=== PATIENT | male | born 2000 | race Hispanic/Latino ===

== ENCOUNTER 2022-01-08 20:54 | Emergency (ER) | payer OTHER ==
--- OUTSIDE RECORDS SUMMARY | 2022-01-08 20:57 | XMS REPORT | Continuity of Care Document ---
:2000 Author Organization [facility] t Address [address] [place] [address] Care Team Providers Name Role Phone TAYLOR KHAN Primary Care Physician Unavailable TAYLOR KHAN Attending Clinician Unavailable Sy Long MD Attending Clinician SY LONG Attending Clinician Unavailable Payers Payer Name Policy Type Policy Number Effective Date Expiration Date [facility] [id number] 2013 00:00:00 Problems Condition Condition Condition Status Onset Resolution Last Treating Co mments Source Name Details Category Date Date Treatment Clinician Date No known No known Disease Unive rs active active ity of problems problems [facility] Allergies, Adverse Reactions, Alerts Allergy Allergy Status Severity Reaction(s) Onset Inactive Treating Comm ents Source Name Type Date Date Clinician NO KNOWN Drug Active Univers ALLERGIE Class ity of S [facility] Social History Social Habit Start Date Stop Date Quantity Comments Source Exposure to Not sure [facility] SARS-CoV-2 (event) Medica l Branch Tobacco use and 2017-07-09 2017-07-09 Never used [facility] exposure 00:00:00 00:00:00 [facility] Sex Assigned At [birth year] [facility] 00:00:00 00:00:00 [facility] Branch Smoking Status Start Date Stop Date Source Never smoker [facility] Medications Ordered Filled Start Stop Current Ordering Indication Dosage Frequency Signature Comments Components Source Medication Medication Date Date Medication? Clinician (SIG) Name Name ibuprofen 2020-05 Yes [id number] 600mg Take 1 Univers 600 mg 2-22 tablet by ity of tablet 00:00: mouth [place] [id number] every 8 Medical (eight) Branch hours as needed for Pain (scale 4-6). montelukast 2020-05 Yes [id number] 10mg Take 1 Univers 10 mg 2-22 tablet by ity of tablet 00:00: mouth [place] 00 every 24 Medical (twenty-fo Branch ur) hours as needed (symptoms) . loratadine 2020-05 Yes [id number] 10mg Take 1 Univers 10 mg 2-22 tablet by ity of tablet 00:00: mouth [place] 00 daily. Medical Branch methylpheni 2020- No 1{capsu Take 1 Univers date HCl 604-27 le} capsule by ity of (QUILLICHE[place] 00:00[place] 40 mg 00 :00 daily. Medical cb24 Take 1 Branch chew po Q am albuterol 2020- No 2{puff} Inhale 2 Univers 90 3 12- Puffs ity of mcg/actuati 00:00[place]00 [place] 4 [place] :00 (four) Medical hours as Branch needed for Wheezing, Shortness of Breath or Chest tightness. azithromyci No 250mg Take 1 Un emily n 250 mg 08-02 tablet by ity o f tablet 00:00: 00:00 mouth [place] 00 :00 SEE-INSTRU Medical CTIONS. Branch Take 500 mg day 1, then 250 mg days 2 to 5. predniSONE 2020- No Take 2 Univ ers 20 mg 07-09-22 tablets po ity of tablet 00:00: 00:00 bid x 3 [place] 00 :00 days, then Medical 1 tablet Branch po bid x 3 days, then 1 tablet po qd x 3 days, 1/2 tablet po qd x 3 days Immunizations Ordered Immunization Filled Immunization Date Status Commen ts Source Name Name Influenza Virus 2014-01-20 Completed Universit y of Vaccine 00:00:00 [facility] Meningococcal 2014-01-20 Completed University Polysaccharide 00:00:00 [facility] citlaly (groups A, C, Y and Branc h W-135) conjugate vaccine (MCV4P) TDAP 2014-01-20 Completed [facility] 00:00:00 [facility] DTAP 2007-02-28 Completed [facility] 00:00:00 [facility] HEPATITIS A 2007-02-28 Completed University of 00:00:00 [facility] MMR 2007-02-28 Completed University of 00:00:00 [facility] Polio (IPV/OPV) 2007-02-28 Completed Universit y of 00:00:00 [facility] Varicella 2007-02-28 Completed University of (varivax)(chicken 00:00:00 [place] M edical pox) Branch HEPATITIS A 2005-09-06 Completed University of 00:00:00 [facility] Pneumococcal 13 2005-09-06 Completed Universit y of Conjugate, PCV13 00:00:00 [place] Me dical (Prevnar 13) Branch DTAP 2004-07-04 Completed University of 00:00:00 [facility] HIB 4 Dose Schedule 2004-07-04 Completed Unive rsity of 00:00:00 [facility] MMR 2004-07-04 Completed University of 00:00:00 [facility] Polio (IPV/OPV) 2003-11-26 Completed Universit y of 00:00:00 [facility] Varicella 2003-11-26 Completed University of (varivax)(chicken 00:00:00 [place] M edical pox) Branch Pneumococcal 13 2003-10-19 Completed Universit y of Conjugate, PCV13 00:00:00 [facility] dical (Prevnar 13) Branch Hep B, Adol or Pedi 2003-09-09 Completed Unive rsity of Dosage 00:00:00 [facility] DTAP 2003-06-10 Completed University of 00:00:00 [facility] HIB 4 Dose Schedule 2003-06-10 Completed Unive rsity of 00:00:00 [facility] Pneumococcal 13 2003-06-10 Completed Universit y of Conjugate, PCV13 00:00:00 [place] Me dical (Prevnar 13) Branch DTAP 2003-02-27 Completed University of 00:00:00 [facility] HIB 4 Dose Schedule 2003-02-27 Completed Unive rsity of 00:00:00 [facility] Pneumococcal 13 2003-02-27 Completed Universit y of Conjugate, PCV13 00:00:00 [place] Me dical (Prevnar 13) Branch Polio (IPV/OPV) 2003-02-27 Completed Universit y of 00:00:00 [facility] DTAP 2002 Completed University of 00:00:00 [facility] HIB 4 Dose Schedule 2002 Completed Unive rsity of 00:00:00 [facility] Hep B, Adol or Pedi 2002 Completed Unive rsity of Dosage 00:00:00 [facility] Pneumococcal 13 2002 Completed Universit y of Conjugate, PCV13 00:00:00 [facility] dical (Prevnar 13) Branch Polio (IPV/OPV) 2002 Completed Universit y of 00:00:00 [facility] Hep B, Adol or Pedi 2002 Completed Unive rsity of Dosage 00:00:00 [facility] Vital Signs Vital Name Observation Time Observation Value Comments Source Systolic blood 2021-04-27 07:35:00 101 mm[Hg] Univer sity of pressure [facility] Diastolic blood 2021-04-27 07:35:00 86 mm[Hg] Unive rsity of pressure [facility] Heart rate 2021-04-27 07:35:00 102 /min [facility] Body temperature 2021-04-27 07:35:00 37.61 [facility] Respiratory rate 2021-04-27 07:35:00 14 /min [facility] Body height 2021-04-27 07:35:00 185.4 cm [facility] Body weight 2021-04-27 07:35:00 81.647 kg [facility] BMI 2021-04-27 07:35:00 23.75 kg/m2 [facility] Body mass index 2021-04-27 07:35:00 68.48 % Unive rsity of (BMI) [Percentile] [facility] ical Per age and sex Branch Oxygen saturation in 2021-04-27 07:35:00 97 /min [facility] Arterial blood by [facility] Pulse oximetry Branch Procedures Procedure Date / Time Performed Performing Clinician Sourc e RAPID INFLUENZA A/B 2021-04-27 08:01:00 Sy Long [facility] COVID-19 (ID NOW 2021-04-27 08:01:00 Sy Long [facility] RAPID TESTING) Medical [place] NOTICE OF PRIVACY 2021-04-27 07:25:59 Doctor Unassigned, No Univ [facility] PRACTICES Name Medical Branch CONSENT/REFUSAL FOR 2021-04-27 07:24:45 Doctor Unassigned, No Un [facility] DIAGNOSIS AND Name [facility] TREATMENT Encounters Start End Encounter Admission Attending Care Care Encounter Source Date/Time Date/Time Type Type Clinicians Facility Department ID 2021-10-21 2021-10-21 Outpatient R [facility] [id number] Univers 07:50:00 07:50:00 , TAYLOR [id number] mali [facility] 2021-10-21 2021-10-21 Outpatient R [facility] [id number] Univers 07:50:00 07:50:00 , TAYLOR samson [facility] 2021-04-27 2021-04-27 [facility] [id number] Univers 01:39:00 02:58:00 Sy ARNETT [id number] i ty [facility] [id number] [facility] [id number] [facility] 084 Branch 2021-04-27 2021-04-27 Emergency X [facility] ERT [id number] Univers 01:39:00 02:58:[address] [facility] Results This patient has no known results.
[2022-01-08] MEDS ORDERED: LIDOCAINE 1% W/EPI 1:100,000 MDV 50 ML VIAL ONE (21:24)
--- NOTE | 2022-01-08 22:08 | RAD REPORT ---
EXAM DESCRIPTION: CT - Head C Spine Mpr Wo Con - 01/08/2022 9:24 pm CLINICAL HISTORY: Head and neck injury status post fall. Head and neck pain COMPARISON: None. TECHNIQUE: Computed axial tomography of the head and cervical spine was obtained. Sagittal and coronal reconstruction was performed. All CT scans are performed using dose optimization technique as appropriate and may include automated exposure control or mA/KV adjustment according to patient size. FINDINGS: An intracranial bleed is not seen. The ventricles are normal in caliber. An extra-axial fl uid collection is not noted.Fluid within the visualized sinuses and mastoids is not seen Many of the images of the cervical spine are degraded by motion artifact. No gross fracture or dislocation seen IMPRESSION: No acute intracranial abnormality is seen. Grossly normal cervical spine. Evaluation is limited secondary to motion artifact If the patient continues to have symptoms to suggest intracranial /spinal cord pathology then MRI wou ld be recommended
--- NOTE | 2022-01-08 22:56 | EDPHYS ---
Physician Documentation [facility] Name: Gurdeep Veliz Age: 21 yrs Sex: Male : 2000 Arrival Date: 01/08/2022 Time: 20:57 Bed 5 Private MD: ED Physician Tony Patel HPI: 01/08 21:10 This 21 yrs old Male presents to ER via Ambulatory with complaints of Head cp Injury Without LOC-Adult. 21:10 The patient or guardian reports injury. The complaints affect the above left eye. cp 21:10 Context of injury: resulted from a fall, while riding skateboard. Onset: The cp symptoms/episode began/occurred just prior to arrival. Associated signs and symptoms: Loss of consciousness: This patient did not experience any loss of consciousness. Pertinent positives: headache, Pertinent negatives: incontinence, neck pain, seizure, vomiting. Severity of symptoms: in the emergency department the symptoms are unchanged. Historical: - Allergies: 20:59 No Known Allergies; hb - Home Meds: 20:59 None [Active]; hb - PMHx: 20:59 Asthma; hb - PSHx: 20:59 None; hb - Immunization history:: Adult Immunizations up to date, Last tetanus immunization: unknown. - Social history:: Smoking status: Patient denies any tobacco usage or history of. ROS: 21:15 Constitutional: Negative for body aches, chills, fever, poor PO intake. cp 21:15 Eyes: Negative for injury, pain, redness, and discharge. cp 21:15 Neck: Negative for pain with movement, pain at rest, stiffness. 21:15 Cardiovascular: Negative for chest pain. 21:15 Abdomen/GI: Negative for abdominal pain, vomiting, diarrhea, constipation. 21:15 Skin: Positive for laceration(s), of the above left eye. 21:15 Neuro: Positive for headache, Negative for altered mental status, loss of consciousness. 21:15 All other systems are negative. Exam: 21:20 Constitutional: The patient appears in no acute distress, alert, awake, cp non-diaphoretic, non-toxic, well developed, well nourished. 21:20 Head/face: Noted is ecchymosis, that is mild, a laceration(s), that is deep, that is cp linear, of the above left eye, swelling, that is mild. 21:20 Eyes: Pupils: equal, round, and reactive to light and accomodation, Extraocular movements: intact throughout, Conjunctiva: normal, no exudate, no injection, Lids and lashes: appear normal, bilaterally. 21:20 ENT: External ear(s): are unremarkable, Nose: is normal, Mouth: Lips: moist, Oral mucosa: pink and intact, moist, Posterior pharynx: Airway: no evidence of obstruction, patent. 21:20 Neck: C-spine: vertebral tenderness, is not appreciated, crepitus, is not appreciated, ROM/movement: pain, is not appreciated, limited range of motion, is not appreciated, nuchal rigidity, is not appreciated. 21:20 Chest/axilla: Inspection: normal, Palpation: is normal, no crepitus, no tenderness. 21:20 Cardiovascular: Rate: normal, Rhythm: regular. 21:20 Respiratory: the patient does not display signs of respiratory distress, Respirations: normal, no use of accessory muscles, no retractions, labored breathing, is not present, Breath sounds: are clear throughout, no decreased breath sounds, no stridor, no wheezing. 21:20 Abdomen/GI: Inspection: abdomen appears normal, Palpation: abdomen is soft and non-tender, in all quadrants. 21:20 Back: pain, is absent, ROM is normal. 21:20 Neuro: Orientation: to person, place \T\ time. Mentation: is normal, Cerebellar function: is grossly normal, Motor: moves all fours, strength is normal, Sensation: is normal, Gait: is steady. Vital Signs: 20:58 BP 127 / 77; Pulse 68; Resp 16; Temp 99.2(TE); Pulse Ox 100% on R/A; Weight 74.84 kg; hb Height 6 ft. (182.88 cm); Pain 8/10; 20:58 Body Mass Index 22.38 (74.84 kg, 182.88 cm) hb Bjorn Coma Score: 21:00 Eye Response: spontaneous(4). Verbal Response: oriented(5). Motor Response: obeys tw5 commands(6). Total: 15. 21:10 Eye Response: spontaneous(4). Verbal Response: oriented(5). Motor Response: obeys cp commands(6). Total: 15. Trauma Score (Adult): 21:00 Eye Response: spontaneous(1); Verbal Response: oriented(1); Motor Response: obeys tw5 commands(2); Systolic BP: > 89 mm Hg(4); Respiratory Rate: 10 to 29 per min(4); Bjorn Score: 15; Trauma Score: 12 21:00 Eye Response: spontaneous(1); Verbal Response: oriented(1); Motor Response: obeys tw5 commands(2); Systolic BP: > 89 mm Hg(4); Respiratory Rate: 10 to 29 per min(4); Kellogg Score: 15; Trauma Score: 12 Laceration: 22:51 Wound Repair of 3cm ( 1.2in ) subcutaneous laceration to above left eye. Linear cp shaped.. Distal neuro/vascular/tendon intact. Anesthesia: Wound infiltrated with 4 mls of 1% lidocaine w/ Epi. Wound prep: Simple cleansing by me. Skin closed with 5 6-0 Prolene using interrupted sutures and sterile technique. Subcutaneous tissue closed with 3 5-0 Vicryl using interrupted sutures and sterile technique. Dressed with Bacitracin. Patient tolerated well. MDM: 21:13 Patient medically screened. [facility] 22:55 Data reviewed: vital signs, nurses notes, radiologic studies, CT scan. 22:55 Differential diagnosis: Contusion of head, Laceration of face, Intracranial bleed- cp Concussion cerebral contusion. Counseling: I had a detailed discussion with the patient and/or guardian regarding: the historical points, exam findings, and any diagnostic results supporting the discharge/admit diagnosis, radiology results, the need for outpatient follow up, a family practitioner, to return to the emergency department if symptoms worsen or persist or if there are any questions or concerns that arise at home. Response to treatment: the patient's symptoms have markedly improved after treatment, and as a result, I will discharge patient. Special discussion: Based on the patient's history, exam and DX evaluation, there is no indication for emergent intervention or inpatient [place]. It is understood by the patient/guardian that if the SXs persist or worsen they need to return immediately for re-evaluation. 01/08 21:03 Order name: CT Head C Spine; Complete Time: 22:10 01/08 22:11 Interpretation: Reviewed report. 01/08 21:03 Order name: Dressing - Wound; Complete Time: 22:57 cp 01/08 21:03 Order name: Gloves, Sterile; Complete Time: 21:42 cp 01/08 21:03 Order name: Setup Suture Tray; Complete Time: 21:42 cp Administered Medications: 22:57 Drug: Lidocaine-Epinephrine -1%: (1:100,000) 10 ml {Note: administered at bedside by tw5 Pa.} Volume: 20 ml; Route: Infiltration; Disposition Summary: 01/08/22 22:56 Discharge Ordered Location: Home cp Problem: new cp Symptoms: have improved cp Condition: Stable cp Diagnosis - Laceration without foreign body of other part of head, initial encounter cp Followup: cp - With: Private Physician - When: 1 week - Reason: Staple/Suture removal Discharge Instructions: - Discharge Summary Sheet cp - Head Injury, Adult cp - Laceration Care, Adult cp - Facial Laceration cp Forms: - Medication Reconciliation Form cp - Thank You Letter cp - Antibiotic Education cp - Prescription Opioid Use cp Signatures: Dispatcher [employer] EDTony Arteaga MD MD cha Page, Corey, PA PA cp Roxana Morris, RN RN Mitra Tucker tw5
--- NOTE | 2022-01-08 22:56 | ER ---
Nurse's Notes [facility] Name: Gurdeep Veliz Age: 21 yrs Sex: Male : 2000 Arrival Date: 01/08/2022 Time: 20:57 Bed 5 Private MD: Diagnosis: Laceration without foreign body of other part of head, initial encounter Presentation: 01/08 20:58 Chief complaint: Fall onto concrete while skateboarding, laceration to left forehead hb noted. Denies other injuries. Bleeding controlled. Negative LOC. Coronavirus screen: At this time, the client does not indicate any symptoms associated with coronavirus-19. Ebola Screen: No symptoms or risks identified at this time. Risk Assessment: Do you want to hurt yourself or someone else? Patient reports no desire to harm self or others. Onset of symptoms was January 08, 2022. 20:58 Method Of Arrival: Ambulatory hb 20:58 Acuity: ROBERT 3 hb 21:00 Initial Sepsis Screen: Does the patient meet any 2 criteria? No. Patient's initial tw5 sepsis screen is negative. Does the patient have a suspected source of infection? No. Patient's initial sepsis screen is negative. 21:00 Care prior to arrival: None. Mechanism of Injury: fell while skateboarding. Trauma tw5 event details: Injury occurred in the [facility], Injury occurred: Injury occurred: January 08, 2022 Injury occurred at: 20:50. Triage Assessment: 21:00 Pain: Complains of pain in head Pain does not radiate. Pain currently is 4 out of 10 on tw5 a pain scale. at worst was 4 out of 10 on a pain scale. level that patient reports is acceptable is 4 out of 10 on a pain scale. Trauma Activation: Physician: ED Physician; Name: reji HAWLEY; Notified At: 20:58; Arrived At: Physician: General Surgeon; Name: ; Notified At: 20:58; Arrived At: Physician: Radiology; Name: ; Notified At: 20:58; Arrived At: Physician: Respiratory; Name: ; Notified At: 20:58; Arrived At: Physician: Lab; Name: ; Notified At: 20:58; Arrived At: Historical: - Allergies: 20:59 No Known Allergies; hb - Home Meds: 20:59 None [Active]; hb - PMHx: 20:59 Asthma; hb - PSHx: 20:59 None; hb - Immunization history:: Adult Immunizations up to date, Last tetanus immunization: unknown. - Social history:: Smoking status: Patient denies any tobacco usage or history of. Screenin:16 Abuse screen: Denies threats or abuse. Nutritional screening: No deficits noted. tw5 Tuberculosis screening: No symptoms or risk factors identified. Fall Risk Fall in past 12 months (25 points). No secondary diagnosis (0 pts). No IV (0 pts). Ambulatory Aid- None/Bed Rest/Nurse Assist (0 pts). Gait- Normal/Bed Rest/Wheelchair (0 pts) Mental Status- Oriented to own ability (0 pts). Total Cruz Fall Scale indicates Low Risk Score (25-44 pts). Fall prevention measures have been instituted. Side Rails Up X 2 Frequent Obs/Assesments occuring As available Patient and Family Educated on Fall Prevention Program and strategies. Primary Survey: 21:00 NO uncontrolled hemorrhage observed. A: The client is alert. Breathing/Chest: tw5 Respiratory effort: spontaneous, unlabored, Breath sounds: clear. Circulation: Pulses: palpable right radial artery and left radial artery. Skin color: pink, Skin temperature: warm, Heart tones present. Disability Pupils are equal, round, reactive to light and accommodation. Exposure/Environment: All clothing and personal items were removed. Forensic evidence collection is not deemed to be indicated at this time. Items placed in patient belonging bag. There is no evidence of uncontrolled external bleeding. Obvious injury(ies) are noted at this time: laceration R eyebrow area. Reassessment Alertness and Airway: Airway Patent Breathing: Respiratory effort Circulation: Heart tones Present Pulses Palpable Disability: Pupils Pupils are equal, round, reactive to light and accomodation. Alert. Secondary Survey: 21:02 HEENT: Head Other Laceration L eyebrow area Face No injury/deformity Eyes: No injury or tw5 deformity noted. to bilateral eyes. Ears: clear bilaterally. Nose: clear to bilateral nares. Throat: No injury or deformity noted. with gag reflex present. Gastrointestinal: Abdomen is soft, flat. :. Musculoskeletal: Range of motion: intact in all extremities. Injury Description: Laceration sustained to L eyebrow area. Assessment: 21:00 General: Appears in no apparent distress. Behavior is appropriate for age. tw5 21:00 Neuro: [place] Agitation-Sedation Scale (RASS): 0 - Alert and Calm Level of ke1 Consciousness is awake, alert, Oriented to person, place, time, situation. 23:00 Reassessment: Patient states feeling better. Patient states symptoms have improved. tw5 Vital Signs: 20:58 BP 127 / 77; Pulse 68; Resp 16; Temp 99.2(TE); Pulse Ox 100% on R/A; Weight 74.84 kg; hb Height 6 ft. (182.88 cm); Pain 8/10; 20:58 Body Mass Index 22.38 (74.84 kg, 182.88 cm) hb [place] Coma Score: 21:00 Eye Response: spontaneous(4). Verbal Response: oriented(5). Motor Response: obeys tw5 commands(6). Total: 15. 21:10 Eye Response: spontaneous(4). Verbal Response: oriented(5). Motor Response: obeys cp commands(6). Total: 15. Trauma Score (Adult): 21:00 Eye Response: spontaneous(1); Verbal Response: oriented(1); Motor Response: obeys tw5 commands(2); Systolic BP: > 89 mm Hg(4); Respiratory Rate: 10 to 29 per min(4); Bjorn Score: 15; Trauma Score: 12 21:00 Eye Response: spontaneous(1); Verbal Response: oriented(1); Motor Response: obeys tw5 commands(2); Systolic BP: > 89 mm Hg(4); Respiratory Rate: 10 to 29 per min(4); Bjorn Score: 15; Trauma Score: 12 ED Course: 20:57 Patient arrived in ED. hb 20:59 Triage completed. hb 20:59 Arm band placed on. hb 21:00 Mitra Bills is Primary Nurse. tw5 21:00 Placed in gown. Bed in low position. Call light in reach. Side rails up X2. Adult w/ tw5 patient. 21:00 Patient maintains SpO2 saturation greater than 95% on room air. tw5 21:02 Tony Floyd PA is PHCP. cp 21:02 Tony Patel MD is Attending Physician. cp 21:26 CT Head C Spine In Process Unspecified. EDMS 21:26 Thermoregulation: warm blanket given to patient. tw5 23:00 Assist provider with laceration repair on left side of forehead that was 2.5 cm. or tw5 less using harvey. Performed by Tony HUI. Patient did not have IV access during this emergency room visit. Administered Medications: 22:57 Drug: Lidocaine-Epinephrine -1%: (1:100,000) 10 ml {Note: administered at bedside by tw5 Irvin.} Volume: 20 ml; Route: Infiltration; Medication: 23:00 VIS not applicable for this client. tw5 Outcome: 22:56 Discharge ordered by . cp 23:00 Discharged to home ambulatory, with friend. tw5 23:00 Condition: good 23:00 Discharge instructions given to patient, Instructed on discharge instructions, follow up and referral plans. Demonstrated understanding of instructions, follow-up care. 23:00 Patient left the ED. tw5 Signatures: Dispatcher [employer] EDNM Tony Floyd PA PA cp Baxter, Heather, RN Mitra Reyes tw5 Chichi Blake RN RN ke1
[2022-01-08 23:07] VITALS: BP 127/77; TEMP 99.2; O2SAT 100
== END 2022-01-08 23:00 | disposition home or self-care (01) ==
LOC: ER 20:54
PROC: 0JQ10ZZ Repair Face Subcutaneous Tissue and Fascia, Open Approach (ICD-10-PCS; principal; 2022-01-08)
DX: S01.81XA Laceration without foreign body of other part of head, initial encounter (principal)
CPT/HCPCS: 70450; 72125; 99284